=== PATIENT | female | born 1955 | race Caucasian/White ===

== ENCOUNTER → 2017-06-05 | Day surgery (SDC) | payer OTHER ==
[~2017-06-05] MED LIST: BUPIVACAINE HCL 0.5% INJ 30 ML VIAL INJ ONE; CEFAZOLIN SOD 1 GM VIAL ONE; DEXAMETHASONE SOD PHOS INJ 4 MG/ML VIAL ONE; EPHEDRINE SULFATE INJ 50 MG/10 ML SYR ONE; FENTANYL CITRATE/PF 100MCG/2 ML INJ ONE; KETOROLAC TROMETHAMINE 30 MG/ML VIAL ONE; LIDOCAINE HCL 2% LOCAL INJ 5 ML SDV VIAL INJ ONE; MIDAZOLAM HCL 2 MG/2 ML VIAL ONE; MUPIROCIN 2% OINT 22 GM TUBE ONE; ONDANSETRON HCL INJ 2 MG/ML VIAL ONE; PROPOFOL IV EMULSION 10 MG/ML 20 ML VIAL ONE; SEVOFLURANE INHAL SOLN 250 ML PEN BTL ONE
--- NOTE | 2017-06-06 08:43 | Operative Report ---
DATE OF PROCEDURE: June 05, 2017 PREOPERATIVE DIAGNOSES 1. Heberden's nodes, right index finger distal interphalangeal joint. 2. Mucous cyst, right index finger distal interphalangeal joint. POSTOPERATIVE DIAGNOSES 1. Heberden's nodes, right index finger distal interphalangeal joint. 2. Mucous cyst, right index finger distal interphalangeal joint. OPERATIVE PROCEDURES 1. Excision of mucous cyst, right index finger distal interphalangeal joint. 2. Arthrotomy and removal of Heberden's nodes, right index finger distal interphalangeal joint. ANESTHESIA: General. HISTORY: The patient is a 61-year-old, [id number] female who has a large mucous cyst with nail plate deformity as well as symptomatic Heberden's nodes, right index finger distal interphalangeal joint. Risks, benefits and alternatives of treatment were discussed with the patient. She is prepared to undergo the procedures outlined. DETAILS OF PROCEDURE: Patient was marked preoperatively in the holding area. She was brought to the operating theater; and after the induction of adequate general anesthesia, she was prepped and draped in a supine position. A time out was performed. Procedure was begun by marking out a tripartite incision over the DIP joint of the right index finger. A Tourni-Cot was placed around the base of the right index finger. The incision was then made through the skin and subcutaneous tissues. Venous tributaries were controlled with bipolar cautery. A large mucous cyst was encountered on the radial side of the DIP joint, and this cyst was then excised and traced down to the level of the DIP joint where it was transected and removed. The extensor tendon mechanism and the 2 Heberden's nodes on the radial and ulnar sides of the tendon were identified. The tendon was retracted, and then the arthrotomy was made. Heberden's nodes were then removed using a rongeur. Once the bone had been smoothed out, a rasp was used to smooth out the surface. The tendon was allowed to retract back to its tulalip position. The wound was irrigated with bacteriostatic saline. The skin was closed with 5-0 nylon in an interrupted horizontal mattress fashion. The Tourni-Cot was removed, and the finger pinked up nicely. A Marcaine field block was performed as a digital block at the base of the finger. A sterile bulky conforming bandage was applied. Patient was returned to the recovery room in satisfactory condition and discharged with a postoperative instruction sheet as well as a followup appointment. Job#: [id number]
== END | disposition home or self-care (01) ==
LOC: OR 05:41
PROVIDERS: ATTEND Plastic Surgery
DX: M15.1 Heberden's nodes (with arthropathy) (principal); M25.741 Osteophyte, right hand; K44.9 Diaphragmatic hernia without obstruction or gangrene; R00.1 Bradycardia, unspecified; Z01.810 Encounter for preprocedural cardiovascular examination
CPT/HCPCS: 26160; 88305; 88311; 93005; J0690; J1100; J1885; J2001; J2250; J2405; 88304